=== PATIENT | female | born 1950 | race Caucasian/White ===

== ENCOUNTER → 2021-01-19 11:30 | Outpatient (BNVA) | payer MEDICARE, SELFPAY | PROVIDERS: PCP Family Medicine Adult Medicine; Visit Provider Family Medicine Adult Medicine | DX: I10 Essential (primary) hypertension (principal); N18.30 Chronic kidney disease, stage 3 unspecified; E66.01 Morbid (severe) obesity due to excess calories; K21.9 Gastro-esophageal reflux disease without esophagitis; Z68.41 Body mass index [BMI] 40.0-44.9, adult; R32 Unspecified urinary incontinence; N36.42 Intrinsic sphincter deficiency (ISD); Z86.69 Personal history of other diseases of the nervous system and sense organs; I89.0 Lymphedema, not elsewhere classified; Z98.49 Cataract extraction status, unspecified eye | CPT/HCPCS: 80053; 80061; 84443; 85025 ==

== ENCOUNTER → 2021-04-23 14:04 | Outpatient (BNVA) | payer MEDICARE, SELFPAY | PROVIDERS: PCP Family Medicine Adult Medicine; Referring Provider Family Medicine Adult Medicine; Visit Provider Nurse Practitioner Family | DX: N39.46 Mixed incontinence (principal) | CPT/HCPCS: 81003; 87086 ==

== ENCOUNTER → 2021-06-16 11:29 | Outpatient (BNVA) | payer MEDICARE, SELFPAY | PROVIDERS: PCP Family Medicine Adult Medicine; Visit Provider Family Medicine Adult Medicine | DX: N18.30 Chronic kidney disease, stage 3 unspecified (principal); I10 Essential (primary) hypertension; I89.0 Lymphedema, not elsewhere classified; Z68.41 Body mass index [BMI] 40.0-44.9, adult; E66.01 Morbid (severe) obesity due to excess calories; N39.46 Mixed incontinence; L91.8 Other hypertrophic disorders of the skin | CPT/HCPCS: 80053; 80061; 83036; 85025 ==

== ENCOUNTER → 2022-02-09 10:13 | Outpatient (BNVA) | payer MEDICARE, SELFPAY | PROVIDERS: PCP Family Medicine Adult Medicine; Visit Provider Emergency Medicine | DX: I96 Gangrene, not elsewhere classified (principal); L97.811 Non-pressure chronic ulcer of other part of right lower leg limited to breakdown of skin; L97.821 Non-pressure chronic ulcer of other part of left lower leg limited to breakdown of skin; L97.121 Non-pressure chronic ulcer of left thigh limited to breakdown of skin; L97.111 Non-pressure chronic ulcer of right thigh limited to breakdown of skin; Z87.891 Personal history of nicotine dependence | CPT/HCPCS: 11042; 11045; 87070; 87077; 87176; 87186; 87205; 99212; A6212 ==

== ENCOUNTER 2022-02-10 16:56 | Outpatient (CLI) | payer MEDICARE, SELFPAY ==
[2022-02-10 18:04] LABS: Alanine Aminotransferase 6 U/L (0-33); Albumin Level 3.6 g/dL (3.5-5.2); Alkaline Phosphatase 104 IU/L (35-105); Anion Gap 16.3 (5-19); Aspartate Amino Transferase 9 U/L (0-32); Blood Urea Nitrogen 18 mg/dL (8-23); Carbon Dioxide 22 mmol/L (22-29); Chloride 105 mmol/L (98-107); Globulin 3.6 g/dL (1.3-4.6); Glomerular Filtration Rate 44.4 mL/min (90-130); Glucose 89 mg/dL (65-115); Osmolality Calculated 289 mOsm/kg (285-295); Potassium 4.3 mmol/L (3.5-5.1); Sodium 139 mmol/L (136-145); Total Bilirubin 0.4 mg/dL (0.15-1.2); Total Protein 7.2 g/dL (6.6-8.7)
== END 2022-02-10 16:57 | disposition home or self-care (01) ==
PROVIDERS: PCP Family Medicine Adult Medicine; Visit Provider Family Medicine Adult Medicine
DX: N18.30 Chronic kidney disease, stage 3 unspecified (principal); I87.2 Venous insufficiency (chronic) (peripheral)
CPT/HCPCS: 80053

== ENCOUNTER → 2022-02-16 10:42 | Outpatient (BNVA) | payer MEDICARE, SELFPAY | PROVIDERS: PCP Family Medicine Adult Medicine; Visit Provider Emergency Medicine | DX: L97.811 Non-pressure chronic ulcer of other part of right lower leg limited to breakdown of skin (principal); L97.821 Non-pressure chronic ulcer of other part of left lower leg limited to breakdown of skin; L97.111 Non-pressure chronic ulcer of right thigh limited to breakdown of skin; L97.121 Non-pressure chronic ulcer of left thigh limited to breakdown of skin; I96 Gangrene, not elsewhere classified | CPT/HCPCS: 11042; 99212; A6212 ×2 ==

== ENCOUNTER → 2022-03-02 10:14 | Outpatient (BNVA) | payer MEDICARE, SELFPAY | PROVIDERS: PCP Family Medicine Adult Medicine; Visit Provider Nurse Practitioner Family | DX: L97.811 Non-pressure chronic ulcer of other part of right lower leg limited to breakdown of skin (principal); L97.821 Non-pressure chronic ulcer of other part of left lower leg limited to breakdown of skin; L97.121 Non-pressure chronic ulcer of left thigh limited to breakdown of skin; L89.313 Pressure ulcer of right buttock, stage 3 | CPT/HCPCS: 11042 ==

== ENCOUNTER → 2022-03-16 10:41 | Outpatient (BNVA) | payer MEDICARE, SELFPAY | PROVIDERS: PCP Family Medicine Adult Medicine; Visit Provider Nurse Practitioner Family | DX: I96 Gangrene, not elsewhere classified (principal); L97.321 Non-pressure chronic ulcer of left ankle limited to breakdown of skin; L89.313 Pressure ulcer of right buttock, stage 3 | CPT/HCPCS: 99213 ==

== ENCOUNTER → 2022-03-23 08:51 | Outpatient (BNVA) | payer MEDICARE, SELFPAY | PROVIDERS: PCP Family Medicine Adult Medicine; Visit Provider Nurse Practitioner Family | DX: L89.313 Pressure ulcer of right buttock, stage 3 (principal); I96 Gangrene, not elsewhere classified; Z09 Encounter for follow-up examination after completed treatment for conditions other than malignant neoplasm | CPT/HCPCS: 11042 ==

== ENCOUNTER → 2022-03-30 08:43 | Outpatient (BNVA) | payer MEDICARE, SELFPAY | PROVIDERS: PCP Family Medicine Adult Medicine; Visit Provider Nurse Practitioner Family | DX: I96 Gangrene, not elsewhere classified (principal); L89.313 Pressure ulcer of right buttock, stage 3 | CPT/HCPCS: 99213; A6212 ==

== ENCOUNTER → 2022-04-13 14:13 | Outpatient (BNVA) | payer MEDICARE, SELFPAY | PROVIDERS: PCP Family Medicine Adult Medicine; Visit Provider Nurse Practitioner Family | DX: I96 Gangrene, not elsewhere classified (principal); L97.821 Non-pressure chronic ulcer of other part of left lower leg limited to breakdown of skin; I89.0 Lymphedema, not elsewhere classified; L89.313 Pressure ulcer of right buttock, stage 3 | CPT/HCPCS: 11042 ==

== ENCOUNTER 2022-04-15 11:54 | Outpatient (CLI) | payer MEDICARE, SELFPAY ==
--- NOTE | 2022-04-15 12:00 | USCV_ITS ---
Jason Adeline Age: 71 Gender: F : 1950 Exam Date: 04/15/2022 12:25 Ordering Phys: Amy Lemus DO Technologist: Naz Lowe Exam Location: [facility] [place] Indication: HISTORY: PROCEDURES: FINDINGS: The veins were found to be easily compressible with spontaneous blood flow. Non pulsatile flow pattern. No significant reflux in the deep veins Venous reflux is noted at the saphenofemoral junction on the right side CONCLUSIONS 1. No evidence of any thrombosis in the deep veins or in the superficial veins 2. Significant venous reflux of greater than 500 ms was noted at the saphenofemoral junction on the right side 3. No significant venous reflux were noted in any other deep or superficial veins examined above Dr Melanie Ruth MD [facility] (Electronically Signed) Final Date: 15 April 2022 20:55 S
== END 2022-04-15 11:55 | disposition home or self-care (01) ==
LOC: RAD 11:55
PROVIDERS: PCP Family Medicine Adult Medicine; Visit Provider Emergency Medicine
DX: I87.2 Venous insufficiency (chronic) (peripheral) (principal); L97.929 Non-pressure chronic ulcer of unspecified part of left lower leg with unspecified severity; E66.01 Morbid (severe) obesity due to excess calories; Z68.41 Body mass index [BMI] 40.0-44.9, adult
CPT/HCPCS: 93970

== ENCOUNTER → 2022-04-20 09:20 | Outpatient (BNVA) | payer MEDICARE, SELFPAY | PROVIDERS: PCP Family Medicine Adult Medicine; Visit Provider Nurse Practitioner Family | DX: I96 Gangrene, not elsewhere classified (principal); L89.313 Pressure ulcer of right buttock, stage 3 | CPT/HCPCS: 99213 ==

== ENCOUNTER 2022-04-26 14:17 | Outpatient (CLI) | payer MEDICARE, SELFPAY ==
--- NOTE | 2022-04-26 14:30 | USCV_ITS ---
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 CONCLUSIONS 1. Borderline low DON and TBI on the right side, may suggest mild peripheral arterial disease. 2. Normal resting DON and TBI on the left side, suggesting no significant arterial obstruction Dr Melanie Ruth MD [facility] (Electronically Signed) Final Date: 27 April 2022 20:52 S
== END 2022-04-26 14:18 | disposition home or self-care (01) ==
PROVIDERS: PCP Family Medicine Adult Medicine; Visit Provider Emergency Medicine
DX: L97.829 Non-pressure chronic ulcer of other part of left lower leg with unspecified severity (principal); L97.819 Non-pressure chronic ulcer of other part of right lower leg with unspecified severity
CPT/HCPCS: 93922

== ENCOUNTER 2022-04-28 13:26 | Outpatient (CLI) | payer MEDICARE, SELFPAY ==
[2022-04-28 14:44] LABS: Alanine Aminotransferase < 5 U/L (0-33); Albumin Level 3.4 g/dL (3.5-5.2); Alkaline Phosphatase 98 IU/L (35-105); Aspartate Amino Transferase 9 U/L (0-32); Blood Urea Nitrogen 19 mg/dL (8-23); Calcium 8.7 mg/dL (8.5-10.5); Carbon Dioxide 23 mmol/L (22-29); Chloride 108 mmol/L (98-107); Globulin 2.9 g/dL (1.3-4.6); Glomerular Filtration Rate 44.4 mL/min (90-130); Glucose 77 mg/dL (65-115); Osmolality Calculated 295 mOsm/kg (285-295); Sodium 142 mmol/L (136-145); Total Bilirubin 0.4 mg/dL (0.15-1.2); Total Protein 6.3 g/dL (6.6-8.7)
[2022-04-28 14:45] LABS: Anion Gap 15.2 (5-19); Potassium 4.2 mmol/L (3.5-5.1)
== END 2022-04-28 13:27 | disposition home or self-care (01) ==
PROVIDERS: PCP Family Medicine Adult Medicine; Visit Provider Family Medicine Adult Medicine
DX: I87.2 Venous insufficiency (chronic) (peripheral) (principal)
CPT/HCPCS: 80053

== ENCOUNTER → 2022-05-04 14:11 | Outpatient (BNVA) | payer MEDICARE, SELFPAY | PROVIDERS: PCP Family Medicine Adult Medicine; Visit Provider Nurse Practitioner Family | DX: I96 Gangrene, not elsewhere classified (principal); L89.321 Pressure ulcer of left buttock, stage 1; L97.822 Non-pressure chronic ulcer of other part of left lower leg with fat layer exposed; L97.812 Non-pressure chronic ulcer of other part of right lower leg with fat layer exposed | CPT/HCPCS: 99213 ==

== ENCOUNTER → 2022-05-25 10:24 | Outpatient (BNVA) | payer MEDICARE, SELFPAY | PROVIDERS: PCP Family Medicine Adult Medicine; Visit Provider Nurse Practitioner Family | DX: I96 Gangrene, not elsewhere classified (principal); L89.313 Pressure ulcer of right buttock, stage 3; L97.822 Non-pressure chronic ulcer of other part of left lower leg with fat layer exposed; L97.812 Non-pressure chronic ulcer of other part of right lower leg with fat layer exposed | CPT/HCPCS: 99213 ==

== ENCOUNTER → 2022-07-01 09:32 | Outpatient (BNVA) | payer MEDICARE, SELFPAY | PROVIDERS: PCP Family Medicine Adult Medicine; Referring Provider Family Medicine Adult Medicine; Visit Provider Internal Medicine Cardiovascular Disease | DX: R00.1 Bradycardia, unspecified (principal); I12.9 Hypertensive chronic kidney disease with stage 1 through stage 4 chronic kidney disease, or unspecified chronic kidney disease; N18.30 Chronic kidney disease, stage 3 unspecified; Z87.891 Personal history of nicotine dependence; E78.5 Hyperlipidemia, unspecified; K21.9 Gastro-esophageal reflux disease without esophagitis; E66.01 Morbid (severe) obesity due to excess calories; Z68.41 Body mass index [BMI] 40.0-44.9, adult | CPT/HCPCS: 93005; 99204 ==

== ENCOUNTER 2022-07-09 10:14 | Outpatient (CLI) | payer MEDICARE, SELFPAY ==
[2022-07-09 11:14] LABS: Blood Urea Nitrogen 19 mg/dL (8-23); Calcium 9.2 mg/dL (8.5-10.5); Carbon Dioxide 27 mmol/L (22-29); Chloride 103 mmol/L (98-107); Glomerular Filtration Rate 40.5 mL/min (90-130); Glucose 100 mg/dL (65-115); NT Pro B Type Natriuretic Pept 198 pg/mL (0-125); Osmolality Calculated 294 mOsm/kg (285-295); Sodium 141 mmol/L (136-145)
[2022-07-09 11:30] LABS: Anion Gap 15.8 (5-19); Potassium 4.8 mmol/L (3.5-5.1)
== END 2022-07-09 10:15 | disposition home or self-care (01) ==
PROVIDERS: PCP Family Medicine Adult Medicine; Visit Provider Internal Medicine Cardiovascular Disease
DX: I10 Essential (primary) hypertension (principal); I73.9 Peripheral vascular disease, unspecified; R00.1 Bradycardia, unspecified
CPT/HCPCS: 36415; 80048; 83735; 83880

== ENCOUNTER 2022-08-05 09:18 | Outpatient (CLI) | payer MEDICARE, SELFPAY ==
--- NOTE | 2022-08-05 10:00 | USCV_ITS ---
Gomez Adeline Age: 71 Gender: F : 1950 Exam Date: 08/05/2022 10:06 Ordering Phys: Renata Thompson MD [email or web address]) Technologist: Tony Slater [place] [facility] [place]: Shortness of breath/syncope/bradycardia BP: 124 / 58 HR: 63 Rhythm: Sinus Technical Quality: Adequate MEASUREMENTS (Male / Female) Normal Values 2D ECHO LV Diastolic Diameter PLAX 3.5 cm 4.2 - 5.9 / 3.9 - 5.3 cm LV Systolic Diameter PLAX 2.4 cm IVS Diastolic Thickness 1.1 cm 0.6 - 1.0 / 0.6 - 0.9 cm IVS Systolic Thickness 1.3 cm LVPW Diastolic Thickness 1.2 cm 0.6 - 1.0 / 0.6 - 0.9 cm LVPW Systolic Thickness 1.8 cm LVOT Diameter 2.0 cm LV Ejection Fraction 2D Teich 57.6 % LV Ejection Fraction MOD 2C 66.0 % LV Ejection Fraction 2C AL 65.5 % LA Diameter 3.1 cm LA Width 3.1 cm LA Height 5.4 cm RA Width 2.9 cm RA Height 4.6 cm Aorta at Sinotubular Diameter 2.8 cm IVC Diameter 1.3 cm M-MODE Aortic Annulus Diameter 3.1 cm LA Ao Ratio MM 1.0 MV E Point Septal Separation 0.6 cm DOPPLER AV Peak Velocity 178.3 cm/s LVOT Peak Velocity 101.0 cm/s AV Area Cont Eq vti 2.3 cm squared AV Area Cont Eq pk 1.9 cm squared MV Peak Velocity 87.0 cm/s MV Area PHT 3.7 cm squared Mitral E to A Ratio 0.7 MV E' Velocity 32.5 cm/s Mitral E to MV E' Ratio 5.4 Mitral E to LV E' Lateral Ratio 4.9 Mitral E to LV E' Septal Ratio 6.0 TR Peak Velocity 214.1 cm/s TR Peak Gradient 18.3 mmHg TR Mean Velocity 171.8 cm/s TR Mean Gradient 12.1 mmHg TR Velocity Time Integral 65.1 cm Right Atrial Pressure 3.0 mmHg Pulmonary Artery Systolic Pressu 21.3 mmHg PV Peak Velocity 115.0 cm/s RV Acceleration Time 0.1 s RV Ejection Time 0.3 s RV AcT/ET 0.3 FINDINGS Left Ventricle Normal left ventricular size, systolic function and wall thickness, with no regional wall motion abnormalities. Left ventricular ejection fraction is estimated at 60-65 %. Normal diastolic function. Right Ventricle Normal right ventricular size and systolic function. Right ventricular systolic pressure 21.3 mmHg. Right Atrium Normal right atrial size. Left Atrium Upper normal left atrial size. Mitral Valve Structurally normal mitral valve. No mitral valve stenosis. Trace mitral valve regurgitation. Aortic Valve Aortic valve not well visualized. No aortic valve stenosis. No aortic valve regurgitation. Tricuspid Valve Structurally normal tricuspid valve. Trace tricuspid valve regurgitation. Pulmonic Valve Pulmonic valve not well visualized. Trace pulmonary valve regurgitation. Pericardium No pericardial effusion. Aorta Normal size aortic root and proximal ascending aorta. IVC Normal IVC dimension with >50% respiratory change of the inferior vena cava. CONCLUSIONS 1. Normal left ventricular size, systolic function and wall thickness, with no regional wall motion abnormalities. Left ventricular ejection fraction is estimated at 60-65 %. Normal diastolic function. 2. No significant valvular abnormality. 3. Normal pulmonary artery pressure. 4. No prior studies to compare. Renata Thompson MD (Electronically Signed) Final Date: 08 August 2022 12:09 S
== END 2022-08-05 09:19 | disposition home or self-care (01) ==
LOC: RAD 09:19
PROVIDERS: PCP Family Medicine Adult Medicine; Visit Provider Internal Medicine Cardiovascular Disease
DX: R00.1 Bradycardia, unspecified (principal); R06.02 Shortness of breath; R55 Syncope and collapse
CPT/HCPCS: 93306

== ENCOUNTER → 2022-08-06 10:28 | Outpatient (BNVA) | payer MEDICARE, SELFPAY | PROVIDERS: PCP Family Medicine Adult Medicine; Visit Provider Nurse Practitioner Family | DX: I12.9 Hypertensive chronic kidney disease with stage 1 through stage 4 chronic kidney disease, or unspecified chronic kidney disease (principal); N18.30 Chronic kidney disease, stage 3 unspecified; Z87.891 Personal history of nicotine dependence | CPT/HCPCS: 80048; 99214 ==

== ENCOUNTER 2025-01-15 12:43 | Emergency (ER) | payer MEDICARE, SELFPAY ==
[2025-01-15 12:47] VITALS: BP 177/79; PULSE 70; RESP 16; TEMP 36.8; O2SAT 94; BMI 39.4
--- NOTE | 2025-01-15 12:47 | CT_ITS ---
WS: [id number] CT THORACIC SPINE HISTORY: fall TECHNIQUE: Contiguous 2.5 mm axial images are reviewed to thoracic spine. Images are reformatted in sagittal and coronal planes. All CT scans at [facility] use at least one of these dose optimization techniques: automated exposure control; mA and/or kV adjustment per patient size (includes targeted exams where dose is matched to clinical indication); or iterative reconstruction. DLP: 1290.20 mGy.cm COMPARISON: None available. Increase in thoracic kyphosis. No thoracic spine fracture is identified. Diffuse osteopenia. Pedicles and transverse processes are intact. No acute disc protrusions. No central stenosis. Mild cardiomegaly. Very small amount of pericardial thickening. No adrenal mass. No rib fracture. CT/CT thoracic spin wo con* [id number] IMPRESSION: Increase in thoracic kyphosis. No acute thoracic spine fracture.
--- NOTE | 2025-01-15 12:47 | CT_ITS ---
WS: [id number] CT CERVICAL SPINE HISTORY: fall TECHNIQUE: Contiguous 2.0 mm axial imaging performed through the entire cervical spine. Sagittal and coronal reformats also performed. All CT scans at [facility] use at least one of these dose optimization techniques: automated exposure control; mA and/or kV adjustment per patient size (includes targeted exams where dose is matched to clinical indication); or iterative reconstruction. DLP: 1377.91 mGy.cm COMPARISON: None available. Normal cervical alignment. Craniocervical junction, atlantodental interval and C1-C2 alignment is normal. Cervical vertebral body osteophytes. Moderate disc space narrowing is most significant at C5-6. RIGHT facet joint osseous fusion at C2-3. Lateral masses are aligned. Odontoid is intact. C2-C3: Bilateral facet arthritis. C3-C4: Facet arthritis. C4-C5: Bilateral facet arthritis and moderate RIGHT foraminal stenosis. C5-C6: Osteophytic ridging with a small central disc protrusion. Mild central and bilateral foraminal stenosis. C6-C7: Osteophytic ridging with bilateral foraminal stenosis. C7-T1: Normal. Cervical carotid artery calcifications. Lung apices are clear. CT/CT cervical spin wo con* [id number] IMPRESSION: 1. No acute cervical spine fracture. 2. Odontoid process is intact. 3. Facet joint arthritis.
--- NOTE | 2025-01-15 12:47 | CT_ITS ---
WS: [id number] CT LUMBAR SPINE, noncontrast. HISTORY: fall TECHNIQUE: Contiguous 2.0 mm axial imaging are performed. Sagittal and coronal reformats are submitted and reviewed. All CT scans at [facility] use at least one of these dose optimization techniques: automated exposure control; mA and/or kV adjustment per patient size (includes targeted exams where dose is matched to clinical indication); or iterative reconstruction. IV contrast: None DLP: 1290.20 mGy.cm COMPARISON: None available. Increase in lumbar lordosis. L4 anterolisthesis by 6.6 mm. No acute lumbar spine fracture. Normal appearance of the pedicles, transverse processes and spinous processes. Marked bilateral facet joint arthropathy. SI joint arthritis. No sacral fracture. L1-2: Facet arthritis. No stenosis. L2-3: Osteophytic ridging with annular disc bulging and mild facet arthritis. L3-4: Mild annular disc bulging with facet arthritis. L4-5: Unroofing of the disc with asymmetric disc bulging. RIGHT foraminal disc protrusion. Moderate central, subarticular recess and RIGHT foraminal stenosis. Mild LEFT foraminal stenosis. L5-S1: Osteophytic ridging, mild subarticular recess stenosis. Atherosclerosis aorta. Cholelithiasis. LEFT parapelvic cysts. CT/CT lumbar spine wo con* [id number] IMPRESSION: 1. No acute lumbar spine fracture. 2. Grade 1 anterolisthesis of L4. 3. Moderate central, subarticular recess and RIGHT foraminal stenosis at L4-5.
--- NOTE | 2025-01-15 12:47 | CT_ITS ---
WS: [id number] CT HEAD NONCONTRAST HISTORY: fall TECHNIQUE: Contiguous axial imaging performed through the brain. Bone and soft tissue windows. Sagittal and coronal reformats reviewed. All CT scans at [facility] use at least one of these dose optimization techniques: automated exposure control; mA and/or kV adjustment per patient size (includes targeted exams where dose is matched to clinical indication); or iterative reconstruction. DLP: 1377.91 mGy.cm COMPARISON: None available. No acute intracranial hemorrhage, midline shift or mass effect. Mild atrophy and moderate small vessel ischemic disease is confluent around the ventricles. Mild cerebral atrophy. Ventricles: Normal size with no hydrocephalus. No inferior displacement of the cerebellar tonsils. Paranasal sinuses: As visualized are clear. Mastoid air cells: Small amount of fluid in the RIGHT mastoid air cells. Calvarium and scalp: Skull is intact with no soft tissue edema or swelling. Hyperostosis frontalis interna. CT/CT head wo con* [id number] IMPRESSION: 1. No acute intracranial hemorrhage or edema. 2. Mild cerebral atrophy and moderate small vessel disease.
--- NOTE | 2025-01-15 12:48 | ECG_ITS ---
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 Measurements Intervals [place] Rate: 69 P: 57 VT: 168 QRS: 123 QRSD: 151 T: -64 QT: 461 QTc: 495 Interpretive Statements SINUS RHYTHM RIGHT AXIS DEVIATION [QRS AXIS > 100] RIGHT BUNDLE BRANCH BLOCK [120+ ms QRS DURATION, UPRIGHT V1, 40+ ms S IN I/aVL/V4/V5/V6] MARKED T-WAVE ABNORMALITY, CONSIDER ANTEROLATERAL ISCHEMIA [-0.5+ mV T-WAVE IN I/aVL/V3-V6] MODERATE T-WAVE ABNORMALITY, CONSIDER INFERIOR ISCHEMIA [-0.1+ mV T-WAVE IN II/aVF] No previous ECG available for comparison Electronically Signed On 01-16-2025 21:34:11 CDT by Melanie Ruth M.D. [id number] [id number]
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
[2025-01-15 13:15] LABS: Basophils % 0.3 %; Eosinophils # 0.1 10^3/uL (0.0-0.8); Eosinophils % 0.8 %; Lymphocytes % 11.1 %; Mean Corpuscular HGB Conc 30.5 g/dL (30-55); Mean Corpuscular Hemoglobin 26.7 pg (27-33); Mean Corpuscular Volume 87.4 fl (85-98); Mean Platelet Volume 9.7 fL (7.4-10.4); Monocytes # 0.6 10^3/uL (0.2-0.9); Monocytes % 6.5 %; Neutrophils # 6.92 10^3/uL (1.8-7.7); Neutrophils % 79.9 %; Nucleated Red Blood Cells % 0 %; Platelet Count 379 10^3/cmm (157-399); Red Blood Count 4.35 10^6/uL (3.85-5.65); Red Cell Distribution Width 16.8 % (12.1-15.1); White Blood Count 8.66 10^3/uL (3.29-11.43)
--- NOTE | 2025-01-15 13:23 | PC.PHAR ---
Patient states she has Stage 3 kidney failure and she doesn't want any Asprin or NSAid's . Patient did state she takes Tylenol extra strength if needed for pain.
[2025-01-15 13:36] LABS: INR 1.12 (0.8-1.2)
[2025-01-15 13:39] LABS: Alanine Aminotransferase 6 U/L (0-33); Albumin Level 3.3 g/dL (3.5-5.2); Alkaline Phosphatase 127 U/L (35-105); Anion Gap 17.1 (5-19); Aspartate Amino Transferase 11 U/L (0-32); Blood Urea Nitrogen 15 mg/dL (8-23); Calcium 8.5 mg/dL (8.5-10.5); Carbon Dioxide 22 mmol/L (22-29); Chloride 104 mmol/L (98-107); Creatinine Clr Calc Pharmacy 65.5192; Globulin 3.7 g/dL (1.3-4.6); Glucose 91 mg/dL (65-115); Osmolality Calculated 288 mOsm/kg (285-295); Potassium 4.1 mmol/L (3.5-5.1); Sodium 139 mmol/L (136-145); Total Bilirubin 0.6 mg/dL (0.15-1.2)
[2025-01-15 13:58] VITALS: RESP 16
[2025-01-15] MEDS: morphine 4 mg/mL SDV 1 mL IVP (13:58)
[2025-01-15] MEDS: ondansetron 2 mg/ML SDV 2 mL 4 MG IVP (13:58)
[2025-01-15 14:55] VITALS: BP 123/95; PULSE 63; O2SAT 94
[2025-01-15] MEDS: HYDROcodone-acetaminophen 5-325 mg Tablet 1 TAB PO (14:59)
== END 2025-01-15 14:55 | disposition home or self-care (01) ==
PROVIDERS: Emergency Provider Emergency Medicine; PCP Family Medicine
DX: M54.2 Cervicalgia (principal); M54.9 Dorsalgia, unspecified; W19.XXXA Unspecified fall, initial encounter; Z87.891 Personal history of nicotine dependence; E78.5 Hyperlipidemia, unspecified; I12.9 Hypertensive chronic kidney disease with stage 1 through stage 4 chronic kidney disease, or unspecified chronic kidney disease; N18.30 Chronic kidney disease, stage 3 unspecified
CPT/HCPCS: 36415; 70450; 72125; 72128; 72131; 80053; 85025; 85610; 93005; 96374; 96375; 99285; J2270; J2405; J9999